=== PATIENT | female | born 1975 | race Caucasian/White ===

== ENCOUNTER 2017-09-19 08:22 | Day surgery (SDC) | payer OTHER ==
[2017-09-19] MEDS ORDERED: SCOPOLAMINE HYDROBROMIDE PATCH TD ONE ×2 (08:32→09:00)
[2017-09-19] MEDS ORDERED: Ringers Lactate 1,000 ML IV ONE ×3 (08:32→15:10)
[2017-09-19] MEDS ORDERED: CEFAZOLIN/SWI 1gm 0 GM/0 ML SYR ONE (08:32)
[2017-09-19] MEDS ORDERED: PROPOFOL 200 MG/20 ML VIAL IV ONE (08:44)
[2017-09-19] MEDS ORDERED: LIDOCAINE 2% MPF 5 ML VIAL ONE (08:44)
[2017-09-19] MEDS ORDERED: FENTANYL CITR 250 MCG/5 ML ONE (08:44)
[2017-09-19] MEDS ORDERED: DEXAMETHASONE 10 MG/ML VIAL ONE (08:44)
[2017-09-19] MEDS ORDERED: GLYCOPYRROLATE 0.2 MG/ML SYR ONE (08:44)
[2017-09-19] MEDS ORDERED: ROCURONIUM 50 MG/5 ML VIAL IV ONE ×2 (08:45→11:24)
[2017-09-19] MEDS ORDERED: ONDANSETRON HCL 40 MG/20 ML VIAL ONE ×2 (08:49→12:30)
[2017-09-19] MEDS ORDERED: NEOSTIGMINE 1 MG/ML -5 ML SYRINGE ONE (08:50)
[2017-09-19] MEDS ORDERED: NS 0.9% VIAL 20 ML ONE (08:50)
[2017-09-19] MEDS ORDERED: CEFAZOLIN SODIUM 1 GM/VIAL ONE (08:50)
[2017-09-19] MEDS ORDERED: GENTAMICIN SULF 80 MG/2ML INJ ONE ×2 (08:50→12:11)
[2017-09-19] MEDS ORDERED: MIDAZOLAM HCL 2 MG/2 ML INJ ONE (08:51)
[2017-09-19] MEDS ORDERED: BACITRACIN 50000 UNIT VIAL ONE ×2 (08:51→12:12)
[2017-09-19] MEDS ORDERED: Mastisol Adhesive Liq ONE (08:51)
[2017-09-19] MEDS ORDERED: CLINDAMYCIN INJ 150 MG in NA CHLORIDE 0.9% 50 ML IV ONE (09:00)
[2017-09-19 09:41] LABS: Absolute Lymphocytes (CBC) 1.8 K/uL (0.7-4.9); Absolute Monocytes 0.4 K/uL (0.1-1.3); Basophils % 0.8 % (0-1.3); Eosinophils % 6.3 % (0-4.4); Hematocrit 45.2 % (36.0-45.0); Lymphocytes % 32.3 % (15.3-44.8); MCH 30.9 pg (27.0-35.0); MCV 91.8 fL (80-100); Monocytes % 7.7 % (3.3-12.3); RBC Red Blood Cell Count 4.92 M/uL (3.86-4.86)
[2017-09-19] MEDS ORDERED: MORPHINE 10 MG/ML VIAL ONE (12:30)
[2017-09-19 13:25] LABS: Specific Gravity 1.015 (1.005-1.030); Urine Appearance CLEAR; Urine Bilirubin NEGATIVE (NEG); Urine Blood NEGATIVE (NEG); Urine Color YELLOW; Urine Glucose NEGATIVE (NEG); Urine Protein NEGATIVE (NEG); Urine Specific Gravity 1.015 (1.005-1.030); Urine Urobilinogen 0.2 mg/dL (0.2-1.0); Urine pH 5.5 (5.0-7.0)
[2017-09-19 13:26] LABS: Urine Microscopic Reflex NO UMIC
[2017-09-19] MEDS ORDERED: KETOROLAC 30 MG/ML INJ ONE (15:14)
[2017-09-19] MEDS: MEPERIDINE HCL 50 MG/ML AMP ONE ×2 (15:38→15:46)
[2017-09-19] MEDS ORDERED: HYDROCODONE/APAP 10/325 TAB ONE (16:30)
--- NOTE | 2017-09-20 01:47 | OP ---
Surgeon: Larry Hendrix MD Educational Psychologist: Nehemiah. Preoperative Diagnosis: Breast enlargement and descent. Postoperative Diagnosis: Breast enlargement and descent. Procedure Performed: Lift and reduction 220 right and 230 left. Anesthesia: General. Procedure In Detail: After satisfactory induction of general anesthesia, chest was prepped with Dura Prep and dry sterile drapes applied in the usual manner. A 45 template was used to outline the right areola. Transfers curvilinear inferior incision was made. Intervening skin was de-epithelialized w ith EpiCut or dermabrader. A transverse incision was made with electrocautery. Flap was thinned to 1.5 cm and elevated cephalad toward the clavicle, sternum, anterior axillary line. Then, the retrope ctoral dissection was done under the lateral edge of the pectoralis major. An inferior incision was made and then the conization was performed with 2-0 PDS. Straps were elevated at 12 o'clock, 1:30 o' clock, and 3 o'clock position. The straps were then woven in and out the pectoralis major muscle and then sewn to themselves. Strap was sewn over the sternum at the 3 o'clock position with carefully s tapled shut. The left side was done in a mirror image manner. We then returned to the right side, s taples were removed, and the wound was irrigated with antibiotic solution. Electrocautery was used f or hemostasis and then a MARA drain was brought out the axilla and the wound was closed with layer of 3 -0 Vicryl subcu through PDS running subcuticular tied in the vertical meridian of the breast. The le ft side was done in the mirror image manner. Then, the patient was sat up. Site for new nipple-areo lar complex was marked out. A 45 mm diameter template was used to core out tissue and the nipples we re delivered and sewn with interrupted 4-0 PDS followed by 4-0 PDS in running subcuticular. Dressed with tincture of benzoin, Steri-Strips, 5 x 5s, fluffs, and Chemo wrap. The patient tolerated the procedure well. Amount removed from the right side was 220 g and left side was 230 g. CARRIE/RAGHAV Voice ID: [id number] Report ID: [id number]
== END 2017-09-19 18:10 | disposition home or self-care (01) ==
LOC: OR 08:22
PROVIDERS: ATTEND Specialist
PROC: 0HRX07Z Replacement of Left Nipple with Autologous Tissue Substitute, Open Approach (ICD-10-PCS; 2017-09-19)
PROC: 0HRW07Z Replacement of Right Nipple with Autologous Tissue Substitute, Open Approach (ICD-10-PCS; 2017-09-19)
PROC: 0HBV0ZZ Excision of Bilateral Breast, Open Approach (ICD-10-PCS; principal; 2017-09-19 09:00)
DX: N64.81 Ptosis of breast (principal); N60.92 Unspecified benign mammary dysplasia of left breast; N60.82 Other benign mammary dysplasias of left breast; N60.42 Mammary duct ectasia of left breast; N60.32 Fibrosclerosis of left breast
CPT/HCPCS: 36415; 81003; 81025; 85025; 88305; J0690; J1100; J1580; J2175; J2250; J2405; J2710